=== PATIENT | female | born 1945 | race Caucasian/White ===

== ENCOUNTER 2017-09-19 12:48 | Emergency (ER) | payer MEDICARE ==
[2017-09-19] MEDS ORDERED: FENTANYL CITRATE INJ/PF 100 MCG/2 ML AMPUL IV ONE (13:02)
--- NOTE | 2017-09-19 13:03 | ER Document Report ---
ED Medical Screen (RME) - General Chief Complaint: Wrist Pain Stated Complaint: RIGHT ARM INJURY Notes: RME DISCLOSURE I have seen this patient as part of a Rapid Medical Evaluation and, if applicable, placed any initially appropriate orders. The patient will be seen and fully evaluated, including a full history and physical exam, by a provider ( in Main ED or Fast Track) when a room becomes available. 72-year-old female status post fall earlier today. States she tripped and tried to catch herself but instead fell forward onto her arms. Has significant pain with movement of left wrist. Makes it a point to let me know that she does not want any muscle relaxers because "it landed me in the hospital for 12 days when I took baclofen". EXAM Moderate deformity of left wrist and distal left forearm Laceration right forearm Knee abrasions but normal range of motion without significant pain TRAVEL OUTSIDE OF THE [place] IN LAST 30 DAYS: No - Related Data Allergies/Adverse Reactions: codeine [Codeine] Allergy (Verified 09/19/17 12:52) Past Medical History - Past Medical History Cardiac Medical History: Reports: Hx Hypercholesterolemia, Hx Hypertension Denies: Hx Coronary Artery Disease, Hx Heart Attack Pulmonary Medical History: Reports: Hx Bronchitis, Hx Pneumonia Denies: Hx Asthma, Hx COPD, Hx Tuberculosis Neurological Medical History: Denies: Hx Cerebrovascular Accident, Hx Seizures Renal/ Medical History: Denies: Hx Peritoneal Dialysis GI Medical History: Reports: Hx Gastroesophageal Reflux Disease - IBS Musculoskeltal Medical History: Reports Hx Arthritis Psychiatric Medical History: Reports: Hx Depression Infectious Medical History: Past Surgical History: Reports: Hx Abdominal Surgery - hernia, Hx Tubal Ligation. Denies: Hx Hysterectomy, Hx Pacemaker - Immunizations Hx Diphtheria, Pertussis, Tetanus Vaccination: Yes Physical Exam - Vital signs Vitals: Temp Pulse Resp BP Pulse Ox 98.2 F 61 20 143/126 H 98 09/19/17 12:56 09/19/17 12:56 09/19/17 12:56 09/19/17 12:56 09/19/17 12:56 Course - Vital Signs Vital signs: Temp Pulse Resp BP Pulse Ox 98.2 F 61 20 143/126 H 98 09/19/17 12:56 09/19/17 12:56 09/19/17 12:56 09/19/17 12:56 09/19/17 12:56
[2017-09-19 13:07] VITALS: BP 143/126
[2017-09-19] MEDS ORDERED: HYDROMORPHONE HCL INJ/PF 2 MG/ML AMPULE IM ONE (13:36)
[2017-09-19] MEDS ORDERED: LIDOCAINE 1% INJ (10 MG/ML) 10 ML MDV SUBCUT ONE (13:37)
[2017-09-19] MEDS ORDERED: LIDOCAINE 1% INJ-PF (10 MG/ML) 30 ML SDV INJ ONE (13:38)
[2017-09-19] MEDS ORDERED: ACETAMINOPHEN 325 MG TABLET PO ONE (13:45)
--- NOTE | 2017-09-19 13:45 | RADIOLOGY REPORT (SQ) ---
EXAM DESCRIPTION: FOREARM LEFT COMPLETED DATE/TIME: 09/19/2017 1:28 pm REASON FOR STUDY: s/p fall COMPARISON: None. NUMBER OF VIEWS: Two views. TECHNIQUE: Two radiographic images acquired of the left forearm, including elbow and wrist in at elder st one projection. LIMITATIONS: None. FINDINGS: MINERALIZATION: Normal. BONES: Comminuted transverse fracture of the distal radius with marked anterior displacement. Avulsi on fracture of the base of the ulnar styloid. SOFT TISSUES: No obvious swelling or foreign body. OTHER: No other significant finding. IMPRESSION: DISPLACED COMMINUTED FRACTURE OF THE DISTAL RADIUS. AVULSION FRACTURE AT THE BASE OF TH E ULNAR STYLOID. TECHNICAL DOCUMENTATION: JOB ID: [id number] [employer]- All Rights Reserved Reading location - IP/workstation name: [email or web address]
--- NOTE | 2017-09-19 13:46 | RADIOLOGY REPORT (SQ) ---
EXAM DESCRIPTION: FOREARM RIGHT COMPLETED DATE/TIME: 09/19/2017 1:28 pm REASON FOR STUDY: s/p fall COMPARISON: None. NUMBER OF VIEWS: Two views. TECHNIQUE: Two radiographic images acquired of the right forearm, including elbow and wrist in at le ast one projection. LIMITATIONS: None. FINDINGS: MINERALIZATION: Normal. BONES: No acute fracture. Degenerative changes at the base of the thumb. No worrisome bone lesions. SOFT TISSUES: Soft tissue swelling in the mid forearm. No foreign body. OTHER: No other significant finding. IMPRESSION: SOFT TISSUE SWELLING. NO FRACTURE OR OTHER BONY FINDINGS. TECHNICAL DOCUMENTATION: JOB ID: [id number] [employer]- All Rights Reserved Reading location - IP/workstation name: [email or web address]
--- NOTE | 2017-09-19 13:46 | ER Document Report ---
ED General - General Chief Complaint: Wrist Pain Stated Complaint: RIGHT ARM INJURY Time Seen by Provider: 09/19/17 13:28 TRAVEL OUTSIDE OF THE [place] IN LAST 30 DAYS: No - HPI Patient complains to provider of: Fall Notes: Pleasant 72-year-old female presents with mechanical fall at home. Patient had a fall on outstretched hands. Acute onset of sharp left wrist pain 10/10 without radiate Nothing is made that pain better or worse. Patient also sustained a skin tear on her right forearm denies any head trauma. Does not know her tetanus status - Related Data Allergies/Adverse Reactions: codeine [Codeine] Allergy (Verified 09/19/17 12:52) Past Medical History - Social History Smoking Status: Unknown if Ever Smoked Family History: CAD Patient has suicidal ideation: No Patient has homicidal ideation: No - Past Medical History Cardiac Medical History: Reports: Hx Hypercholesterolemia, Hx Hypertension Denies: Hx Coronary Artery Disease, Hx Heart Attack Pulmonary Medical History: Reports: Hx Bronchitis, Hx Pneumonia Denies: Hx Asthma, Hx COPD, Hx Tuberculosis Neurological Medical History: Denies: Hx Cerebrovascular Accident, Hx Seizures Renal/ Medical History: Denies: Hx Peritoneal Dialysis GI Medical History: Reports: Hx Gastroesophageal Reflux Disease - IBS Musculoskeltal Medical History: Reports Hx Arthritis Psychiatric Medical History: Reports: Hx Depression Infectious Medical History: Past Surgical History: Reports: Hx Abdominal Surgery - hernia, Hx Tubal Ligation. Denies: Hx Hysterectomy, Hx Pacemaker - Immunizations Hx Diphtheria, Pertussis, Tetanus Vaccination: Yes Review of Systems - Review of Systems Notes: REVIEW OF SYSTEMS: CONSTITUTIONAL: -fevers, -chills EENT: -eye pain, -difficulty swallowing, -nasal congestion CARDIOVASCULAR: -chest pain, -syncope. RESPIRATORY: -cough, -SOB GASTROINTESTINAL: -abdominal pain, -nausea, -vomiting, -diarrhea GENITOURINARY: -dysuria, -hematuria MUSCULOSKELETAL: Bilateral upper extremity pain SKIN: -rash or skin lesions. HEMATOLOGIC: -easy bruising or bleeding. LYMPHATIC: -swollen, enlarged glands. NEUROLOGICAL: -altered mental status or loss of consciousness, -headache, - neurologic symptoms PSYCHIATRIC: -anxiety, -depression. ALL OTHER SYSTEMS REVIEWED AND NEGATIVE. Physical Exam - Vital signs Vitals: Temp Pulse Resp BP Pulse Ox 98.2 F 61 20 143/126 H 98 09/19/17 12:56 09/19/17 12:56 09/19/17 12:56 09/19/17 12:56 09/19/17 12:56 - Notes Notes: PHYSICAL EXAMINATION: GENERAL: Well-appearing, well-nourished and in no acute distress. HEAD: Atraumatic, normocephalic. EYES: Pupils equal round and reactive to light, extraocular movements intact, sclera anicteric, conjunctiva are normal. ENT: nares patent, oropharynx clear without exudates. Moist mucous membranes. NECK: Normal range of motion, supple without lymphadenopathy LUNGS: Breath sounds clear to auscultation bilaterally and equal. No wheezes rales or rhonchi. HEART: Regular rate and rhythm without murmurs ABDOMEN: Soft, nontender, normoactive bowel sounds. No guarding, no rebound. No masses appreciated. EXTREMITIES: Left wrist obvious deformity small hematoma overlying distal radius. Patient neurovascularly intact. Patient's right upper extremity has hematoma mid right forearm small skin tear itching a half, no gaping. NEUROLOGICAL: Cranial nerves grossly intact. Normal speech, normal gait. Normal sensory and motor exams. PSYCH: Normal mood, normal affect. SKIN: Warm, Dry, normal turgor, no rashes or lesions noted. Course - Re-evaluation Re-evalutation: 09/19/17 13:44 Unfortunate female presents after mechanical fall at home. Patient has distal radius fracture on the left, skin tear on the right. Patient has her fracture reduced by myself, splinting also done by myself in the department pain well controlled with intramuscular IV opioid therapy. 09/19/17 13:45 - Vital Signs Vital signs: Temp Pulse Resp BP Pulse Ox 98.2 F 61 20 143/126 H 98 09/19/17 12:56 09/19/17 12:56 09/19/17 12:56 09/19/17 12:56 09/19/17 12:56 Procedures - Joint Reduction/Fracture Care Left Upper Wrist Conscious sedation: No Fracture: Closed Manipulation comment: hematoma block placed Post-procedure NV exam: Yes - Laceration/Wound Repair Right Upper Wrist Wound length (cm): 5 Wound's Depth, Shape: Superficial Irrigated w/ Saline (mLs): 500 Wound Repaired With: Steri-strips Discharge - Discharge Referrals: ARMEN HUTCHINS MD [Primary Care Provider] - Follow up as needed
[2017-09-19] MEDS ORDERED: DIPH/PERTUSS(ACELL)/TETANUS VAC/PF 0.5 ML SYR (>=10YO) IM ONE (15:15)
--- NOTE | 2017-09-19 15:23 | RADIOLOGY REPORT (SQ) ---
EXAM DESCRIPTION: FOREARM LEFT COMPLETED DATE/TIME: 09/19/2017 3:03 pm REASON FOR STUDY: reduction and splint COMPARISON: 09/19/2017 NUMBER OF VIEWS: Two views. TECHNIQUE: Two radiographic images acquired of the left forearm, including elbow and wrist in at elder st one projection. LIMITATIONS: None. FINDINGS: MINERALIZATION: Normal. BONES: There is a comminuted fracture of the distal radius with dorsal angulation. Fracture of the u lnar styloid. There is not appear to be a significant interval change. SOFT TISSUES: No obvious swelling or foreign body. OTHER: No other significant finding. IMPRESSION: Fractures as described. TECHNICAL DOCUMENTATION: JOB ID: [id number] [employer]- All Rights Reserved Reading location - IP/workstation name: [email or web address]
== END 2017-09-19 15:55 | disposition home or self-care (01) ==
LOC: ER 12:48
DX: S52.615A Nondisplaced fracture of left ulna styloid process, initial encounter for closed fracture (principal); S52.592A Other fractures of lower end of left radius, initial encounter for closed fracture; S51.811A Laceration without foreign body of right forearm, initial encounter; W19.XXXA Unspecified fall, initial encounter; Y92.009 Unspecified place in unspecified non-institutional (private) residence as the place of occurrence of the external cause; I10 Essential (primary) hypertension; Z88.5 Allergy status to narcotic agent
CPT/HCPCS: 99283; 96372; 73090 ×2; 25605; 12002; A9270; J3010; J1170

== ENCOUNTER 2017-09-27 13:02 | Day surgery (SDC) | payer MEDICARE ==
[2017-09-24 11:42] LABS: ABSOLUTE BASOPHILS # (AUTO) 0.1 10^3/uL (0.0-0.2); ABSOLUTE EOSINOPHILS # (AUTO) 0.2 10^3/uL (0.0-0.6); ABSOLUTE LYMPHOCYTES (AUTO) 1.7 10^3/uL (0.5-4.7); ABSOLUTE MONOCYTES (AUTO) 1.6 10^3/uL (0.1-1.4); ABSOLUTE NEUT (AUTO) 7.3 10^3/uL (1.7-8.2); BASOPHILS % (AUTO) 0.7 % (0-2); EOSINOPHILS % (AUTO) 2.1 % (0-6); HEMATOCRIT 37.1 % (36.0-47.0); HEMOGLOBIN 12.4 g/dL (12.0-15.5); LYMPHOCYTES % (AUTO) 15.9 % (13-45); MEAN CORPUSCULAR HGB CONC 33.4 g/dL (32.0-36.0); MEAN CORPUSCULAR VOLUME 87 fl (80-97); MONOCYTES % (AUTO) 14.6 % (3-13); PLATELET COUNT 336 10^3/uL (150-450); RED BLOOD COUNT 4.27 10^6/uL (3.72-5.28); RED CELL DISTRIBUTION WIDTH 13.5 % (11.5-14.0); SEGMENTED NEUTROPHILS % (AUTO) 66.7 % (42-78); TOTAL CELLS COUNTED % (AUTO) 100 %; WHITE BLOOD COUNT 10.9 10^3/uL (4.0-10.5)
[2017-09-24 12:05] LABS: ANION GAP 13 (5-19); BLOOD UREA NITROGEN 17 mg/dL (7-20); CALCIUM 10.3 mg/dL (8.4-10.2); CARBON DIOXIDE 26 mmol/L (22-30); CHLORIDE 94 mmol/L (98-107); GLUCOSE 89 mg/dL (75-110); POTASSIUM 4.7 mmol/L (3.6-5.0); SODIUM 132.7 mmol/L (137-145)
--- NOTE | 2017-09-24 12:40 | EKG REPORT ---
SEVERITY:- NORMAL ECG - SINUS RHYTHM : Confirmed by: Bang Sylvester MD 24-Sep-2017 12:39:36
[2017-09-24 13:31] LABS: APPEARANCE,URINE SLIGHTLY-CLOUDY; BILIRUBIN,URINE NEGATIVE (NEGATIVE); COLOR,URINE YELLOW; GLUCOSE, URINE NEGATIVE (NEGATIVE); KETONES,URINE NEGATIVE (NEGATIVE); LEUKOCYTE ESTERASE,URINE TRACE (NEGATIVE); NITRITE,URINE NEGATIVE (NEGATIVE); PROTEIN,URINE NEGATIVE (NEGATIVE); URINE SPECIFIC GRAVITY 1.012; UROBILINOGEN,URINE NEGATIVE mg/dL (<2.0)
--- NOTE | 2017-09-24 13:45 | RADIOLOGY REPORT (SQ) ---
EXAM DESCRIPTION: CHEST PA/LATERAL COMPLETED DATE/TIME: 09/24/2017 12:42 pm REASON FOR STUDY: PRE OP COMPARISON: 02/18/2016 NUMBER OF VIEWS: Two view. TECHNIQUE: Frontal and lateral radiographic views of the chest acquired. LIMITATIONS: None. FINDINGS: LUNGS AND PLEURA: No opacities, masses or pneumothorax. No pleural effusion. MEDIASTINUM AND HILAR STRUCTURES: No masses or contour abnormalities. HEART AND VASCULATURE: Heart normal size. No evidence for failure. BONY STRUCTURES: No acute findings. HARDWARE: None. OTHER: No other significant finding. IMPRESSION: NO SIGNIFICANT RADIOGRAPHIC FINDING IN THE CHEST. TECHNICAL DOCUMENTATION: JOB ID: [id number] [employer]- All Rights Reserved Reading location - IP/workstation name: [email or web address]
[~2017-09-27 13:02] MED LIST: ALBUTEROL SULFATE 0.083% NEB 2.5 MG/3 ML AMPUL NEB PRN; CEFAZOLIN 2 GM/D5W RTU 2 GM/50 ML RTUPB IV PRN; DEXAMETHASONE SOD PHOSPHATE INJ 4 MG/1 ML VIAL ONE; FAMOTIDINE INJ/PF 20 MG/2 ML SDV IV PRN; GLYCOPYRROLATE INJ 0.4 MG/2 ML VIAL ONE; LACTATED RINGERS 1000 ML IV PRN; ONDANSETRON HCL INJ/PF 4 MG/2 ML SDV ONE; PHENYLEPHRINE HCL INJ/PF 10 MG/1 ML SDV ONE; ROCURONIUM BROMIDE INJ 50 MG/5 ML VIAL IV ONE; SUCCINYLCHOLINE CHLORIDE INJ 200 MG/10 ML VIAL ONE
[2017-09-27] MEDS: RINGERS SOLUTION,LACTATED 1,000 ML IV PRN ×2 (13:20→21:37)
[2017-09-27] MEDS ORDERED: MIDAZOLAM 2 MG/2 ML INJ ONE ×2 (13:56→14:42)
[2017-09-27] MEDS ORDERED: MORPHINE SULFATE 10 MG/ML INJ ONE (14:31)
[2017-09-27] MEDS ORDERED: FENTANYL CITRATE INJ/PF 100 MCG/2 ML AMPUL ONE (14:42)
[2017-09-27] MEDS ORDERED: ACETAMINOPHEN 100 ML IV ONE (14:42)
[2017-09-27] MEDS ORDERED: PROPOFOL INJ 200 MG/20 ML VIAL IV ONE (14:42)
[2017-09-27] MEDS ORDERED: BUPIVACAINE HCL 0.5 % INJ/PF 30 ML SDV ONE (15:13)
[2017-09-27] MEDS ORDERED: EPINEPHRINE INJ 1 MG/10 ML DISP.SYRIN ONE (16:05)
[2017-09-27] MEDS ORDERED: FENTANYL CITRATE INJ/PF 100 MCG/2 ML AMPUL IV PRN ×3 (16:21)
[2017-09-27] MEDS ORDERED: PROMETHAZINE HCL INJ 25 MG/1 ML VIAL IV PRN ×2 (16:21)
[2017-09-27] MEDS ORDERED: DIPHENHYDRAMINE HCL 50 MG/ML VIAL IV PRN ×2 (16:21→18:41)
[2017-09-27] MEDS ORDERED: MEPERIDINE HCL/PF INJ 25 MG/1 ML DISP.SYRIN IV PRN (16:21)
[2017-09-27] MEDS ORDERED: LIDOCAINE 2%/EPINEPHRINE INJ 20 ML VIAL ONE (18:09)
[2017-09-27] MEDS ORDERED: LIDOCAINE 2% INJ (20 MG/ML) 20 ML MDV ONE (18:10)
[2017-09-27] MEDS ORDERED: ROPIVACAINE HCL 0.5% INJ/PF (5 MG/1 ML) 30 ML SDV ONE (18:10)
--- NOTE | 2017-09-27 18:33 | Discharge Summary ---
Discharge Summary (SDC) - Discharge Final Diagnosis: Left distal radial fracture Date of Surgery: 09/27/17 Discharge Date: 09/27/17 Condition: Good Treatment or Instructions: Schedule Follow Up w/ Dr. Rome Flanagan @ [facility] for Surgery to be seen in 10-14 days or as scheduled [place]: Grant: [place]: Ice and elevate Keep splint clean/dry/intact. If your fingers become numb please unwrap the Ozzie wrap but leave the splint in place, if the sensation does not return within 30 minutes please return to the emergency department. May begin finger range of motion attempting to make full fist. Please use ibuprofen (Motrin or Advil) 600-800 mg every 8 hours as needed for pain or fever DO NOT TAKE w/ TORADOL may use once TORADOL complete. You may also use acetaminophen (Tylenol) 1000 mg every 4-6 hours as needed for pain or fever. Please be aware that many medications contain acetaminophen, do not exceed a total of 1000 mg of acetaminophen every 6 hours. If ibuprofen and acetaminophen are not sufficient for your pain you may take the Percocet/[place]. Please be aware that the Percocet/[place] does contain Tylenol. Stool softener of choice when on pain medication. Prescriptions: Oxycodone HCl/Acetaminophen [Endocet 7.5-325 mg Tablet] 1 each PO Q6 #30 tablet Referrals: ARMEN HUTCHINS MD [Primary Care Provider] - Discharge Diet: As Tolerated, Regular Respiratory Treatments at Home: Deep Breathing/Coughing Discharge Activity: No Lifting Over 10 Pounds, No Lifting/Push/Pulling Home Care Assistance: Provided by Family Report the Following to Your Physician Immediately: Shortness of Breath, Fever over 101 Degrees, Unusual Bleeding, Redness, Swelling, Drainage-Yellow
[2017-09-27] MEDS ORDERED: MORPHINE SULFATE 10 MG/ML INJ IM PRN (18:41)
[2017-09-27] MEDS ORDERED: OXYCODONE HCL IR 5 MG TABLET PO PRN (18:41)
[2017-09-27] MEDS ORDERED: MORPHINE SULFATE 10 MG/ML INJ IV PRN ×3 (18:41)
[2017-09-27] MEDS ORDERED: ONDANSETRON 4 MG TAB.RAPDIS PO PRN (18:41)
--- NOTE | 2017-09-27 18:41 | Operative Report ---
Operative Report DATE OF SURGERY: 09/27/17 PREOPERATIVE DIAGNOSIS: >3 Part Intra-articular Distal Radius POSTOPERATIVE DIAGNOSIS: Same OPERATION: ORIF >3 Part Intra-articular Distal Radius Fracture SURGEON: GIOVANNI GE ANESTHESIA: GA COMPLICATIONS: None ESTIMATED BLOOD LOSS: Minimal PROCEDURE: Indication for above procedure: 72-year-old female who sustained a fall onto her outstretched left wrist. Patient radiographs demonstrate comminuted intra-articular distal radius fracture. Subsequently followed up at which point we discussed treatment options including operative versus nonoperative intervention. Risks and benefits were explained to the patient, patient verbalized understanding consented for the procedure. Procedure In Detail: Patient was seen and evaluated in the preoperative holding area. The LEFT upper extremity was initialized and marked. Patient received 2g of Ancef IV for bacterial prophylaxis. Patient was taken back to the operative room where transferred to the operative table and placed under general anesthesia. Once they were adequately anesthetized and a nonsterile tourniquet was placed on his upper extremity. A surgical team debriefing was performed ensuring all instrumentation was available, the surgical procedure was discussed with possible concerns reviewed. The upper extremity was prepped with chlorhexidine and alcohol and draped in a sterile fashion. A timeout was done identifying correct patient, procedure and extremity everyone in attendance agree with this and verbalized no concerns.The extremity was exsanguinated the tourniquet was inflated to 250 mmHg. A longitudinal skin incision was made via a volar approach of [place] along the FCR tendon sheath. The FCR tendon sheath was opened and the FCR retracted ulnarly, the palmar cutaneous branch of the median nerve was identified and protected throughout the entirety of the case. The radial artery was identified and retracted radially. Blunt dissection was performed to the FPL which was carefully sweeped ulnarly. This brought me to the pronator quadratus which was elevated off of the distal radius via sharp dissection with a 15 blade to allow later repair. Patient had significant intra-articular comminution with bone loss volarly and ulnarly. The fracture was reduced with hyperextension. Multiple K wires were placed to hold the articular fragments into position. C-arm fluoroscopy was obtained demonstrating acceptable alignment. Two K wires were placed within the volar ulnar corner and then bent and advanced. There was mild protuberance dorsally thus skin incision was made dorsally blunt dissection was performed between the 3-4 dorsal compartments and a K wire was cut below the skin. Once I liked the placement of the K wires I then proceeded with placement of the volar locking plate. A Acumed 3 hole volar distal radius plate which was secured along the proximal shaft within the oblong hole. Once fixated to the shaft it was placed along the central portion of the articular surface and secured with K wires. C-arm fluoroscopy was obtained which demonstrated appropriate placement of the plate with adequate reduction of the radial styloid and central articular fragments. The plate was then secured first radially with the appropriate size locking screws within the radial styloid and radial aspect of the plate. I then proceeded with fixation of the volar ulnar corner. There was significant bone loss within the volar ulnar corner despite fixation with 2 K wires. I thus utilized a #4-0 [employer] within the volar radiolunate ligaments which provided fixation. I then completed fixation with 3 additional locking screws. The proximal aspect of the plate was fixated with an additional bicortical screw and a locking screw in the most proximal hole. The wound was copiously irrigated with normal saline. There was no evidence of DRUJ instability on examination, Negative Payne's test, No crepitus with range of motion at the radiocarpal joint or DRUJ. I then closed the pronator quadratus with interrupted 3-0 Monocryl suture. Subcutaneous tissues were closed with interrupted 4-0 Monocryl suture. The skin was closed with interrupted 4-0 nylon suture. The tourniquet was then deflated. Was dressed with sterile 4 x 4's and patient was placed in a well-padded volar and dorsal splint with Ozzie wrap. Sponge counts, instrument counts and needle counts were correct. There was no intraoperative complications patient tolerated procedure well stable to PACU. Postoperative plan: Patient will be in a short arm cast first postoperative followup visit . Patient is encouraged to start vitamin C 500 mg daily for 51 days. Will obtain radiographs in her splint at follow-up
[2017-09-27] MEDS ORDERED: METOCLOPRAMIDE HCL INJ/PF 10 MG/2 ML SDV ONE (18:43)
--- NOTE | 2017-09-27 20:18 | RADIOLOGY REPORT (SQ) ---
EXAM DESCRIPTION: WRIST LEFT 2 VIEWS; NO CHG FLUORO COMPLETED DATE/TIME: 09/27/2017 7:28 pm REASON FOR STUDY: ORIF LEFT WRIST S52.542A BRO'S FRACTURE OF LEFT RADIUS, INIT FOR CLOS FX COMPARISON: RADIOGRAPH FROM 09/19/2017. FLUOROSCOPY TIME: 4 MINUTES 23 SECONDS. 4 images saved to PACS. TECHNIQUE: Intra-operative images acquired during surgical procedure to evaluate progress. NUMBER OF IMAGES: 4 IMAGES. LIMITATIONS: None. FINDINGS: 4 fluoroscopic images demonstrates internal and external fixation of distal radius fractur e without gross complication. Ulnar styloid fracture also visualize. IMPRESSION: IMAGE(S) OBTAINED DURING PROCEDURE. COMMENT: Quality ID 145: Final reports for procedures using fluoroscopy that document radiation exp osure indices, or exposure time and number of fluorographic images (if radiation exposure indices are not available) Please consult full operative report of the attending physician for description of the procedure. TECHNICAL DOCUMENTATION: JOB ID: [id number] [employer]- All Rights Reserved Reading location - IP/workstation name: [email or web address]
--- NOTE | 2017-09-27 20:18 | RADIOLOGY REPORT (SQ) ---
EXAM DESCRIPTION: WRIST LEFT 2 VIEWS; NO CHG FLUORO COMPLETED DATE/TIME: 09/27/2017 7:28 pm REASON FOR STUDY: ORIF LEFT WRIST S52.542A BRO'S FRACTURE OF LEFT RADIUS, INIT FOR CLOS FX COMPARISON: RADIOGRAPH FROM 09/19/2017. FLUOROSCOPY TIME: 4 MINUTES 23 SECONDS. 4 images saved to PACS. TECHNIQUE: Intra-operative images acquired during surgical procedure to evaluate progress. NUMBER OF IMAGES: 4 IMAGES. LIMITATIONS: None. FINDINGS: 4 fluoroscopic images demonstrates internal and external fixation of distal radius fractur e without gross complication. Ulnar styloid fracture also visualize. IMPRESSION: IMAGE(S) OBTAINED DURING PROCEDURE. COMMENT: Quality ID 145: Final reports for procedures using fluoroscopy that document radiation exp osure indices, or exposure time and number of fluorographic images (if radiation exposure indices are not available) Please consult full operative report of the attending physician for description of the procedure. TECHNICAL DOCUMENTATION: JOB ID: [id number] [employer]- All Rights Reserved Reading location - IP/workstation name: [email or web address]
--- NOTE | 2017-09-27 20:57 | EKG REPORT ---
SEVERITY:- NORMAL ECG - SINUS RHYTHM : Confirmed by: Bang Sylvester MD 27-Sep-2017 20:57:10
[2017-09-27] MEDS: OXYCODONE HCL SR 10 MG TABLET PO SCH (23:15)
[2017-09-28] MEDS ORDERED: ACETAMINOPHEN 100 ML IV ONE (00:41)
[2017-09-28 04:29] VITALS: BP 150/68
[2017-09-28] MEDS ORDERED: LANSOPRAZOLE 30 MG TAB.RAP.DR PO SCH (06:00)
[2017-09-28] MEDS: OXYCODONE HCL SR 10 MG TABLET PO SCH (09:13)
[2017-09-28] MEDS ORDERED: PREGABALIN 75 MG CAPSULE PO SCH (10:00)
--- NOTE | 2017-10-01 09:57 | Operative Report ---
Operative Report DATE OF SURGERY: 09/27/17 PREOPERATIVE DIAGNOSIS: >3 Part Intra-articular Distal Radius POSTOPERATIVE DIAGNOSIS: Same OPERATION: ORIF >3 Part Intra-articular Distal Radius Fracture SURGEON: GIOVANNI GE [employer] WORKER: MOUNIKA BAKER - Required for fracture reduction and retractor placement ANESTHESIA: GA ESTIMATED BLOOD LOSS: Minimal
== END 2017-09-28 11:08 | disposition home or self-care (01) ==
LOC: OROUT 13:02 → 4N 20:29 → OROUT 09-28 11:08
PROVIDERS: ATTEND Orthopaedic Surgery
PROC: 0PSJ04Z Reposition Left Radius with Internal Fixation Device, Open Approach (ICD-10-PCS; principal; 2017-09-27 14:00)
DX: S52.542A Smith's fracture of left radius, initial encounter for closed fracture (principal); W19.XXXA Unspecified fall, initial encounter; I10 Essential (primary) hypertension; E78.5 Hyperlipidemia, unspecified; F17.210 Nicotine dependence, cigarettes, uncomplicated; E05.90 Thyrotoxicosis, unspecified without thyrotoxic crisis or storm; K21.9 Gastro-esophageal reflux disease without esophagitis; Z88.5 Allergy status to narcotic agent; Z79.899 Other long term (current) drug therapy
CPT/HCPCS: 93005 ×2; 36415 ×2; 85025; 80048; 81001; 84484; 71046; 73100; 93010 ×2; 25609; C1713 ×2; J2795; J2250; J3490 ×4; A9270 ×5; J1100; J3010; J2765; J2270; J2370; J0330; J2405; J7120; J2704; S0028; J0690; J0131; 01830; J0171

== ENCOUNTER 2017-12-13 09:46 | Day surgery (SDC) | payer MEDICARE ==
[2017-12-06 10:12] LABS: HEMATOCRIT 41.6 % (36.0-47.0); HEMOGLOBIN 13.7 g/dL (12.0-15.5); MEAN CORPUSCULAR HEMOGLOBIN 28.5 pg (27.0-33.4); MEAN CORPUSCULAR VOLUME 87 fl (80-97); PLATELET COUNT 293 10^3/uL (150-450); RED BLOOD COUNT 4.81 10^6/uL (3.72-5.28); RED CELL DISTRIBUTION WIDTH 13.8 % (11.5-14.0); WHITE BLOOD COUNT 7.1 10^3/uL (4.0-10.5)
[2017-12-06 10:21] LABS: APPEARANCE,URINE SLIGHTLY-CLOUDY; BILIRUBIN,URINE NEGATIVE (NEGATIVE); COLOR,URINE YELLOW; GLUCOSE, URINE NEGATIVE (NEGATIVE); KETONES,URINE NEGATIVE (NEGATIVE); LEUKOCYTE ESTERASE,URINE NEGATIVE (NEGATIVE); NITRITE,URINE NEGATIVE (NEGATIVE); PROTEIN,URINE NEGATIVE (NEGATIVE); URINE SPECIFIC GRAVITY 1.013; UROBILINOGEN,URINE NEGATIVE mg/dL (<2.0)
[2017-12-06 10:39] LABS: ANION GAP 14 (5-19); BLOOD UREA NITROGEN 11 mg/dL (7-20); CALCIUM 11.3 mg/dL (8.4-10.2); CARBON DIOXIDE 25 mmol/L (22-30); CHLORIDE 105 mmol/L (98-107); GLUCOSE 103 mg/dL (75-110); POTASSIUM 4.4 mmol/L (3.6-5.0); SODIUM 144.4 mmol/L (137-145)
[~2017-12-13 09:46] MED LIST changes: -ALBUTEROL SULFATE 0.083% NEB 2.5 MG/3 ML AMPUL NEB PRN; -DEXAMETHASONE SOD PHOSPHATE INJ 4 MG/1 ML VIAL ONE; -FAMOTIDINE INJ/PF 20 MG/2 ML SDV IV PRN; -GLYCOPYRROLATE INJ 0.4 MG/2 ML VIAL ONE; +LIDOCAINE 0.5% INJ-PF (5 MG/ML) 50 ML SDV SUBCUT PRN; -ONDANSETRON HCL INJ/PF 4 MG/2 ML SDV ONE; -PHENYLEPHRINE HCL INJ/PF 10 MG/1 ML SDV ONE; -ROCURONIUM BROMIDE INJ 50 MG/5 ML VIAL IV ONE; -SUCCINYLCHOLINE CHLORIDE INJ 200 MG/10 ML VIAL ONE
[2017-12-13] MEDS ORDERED: FENTANYL CITRATE INJ/PF 100 MCG/2 ML AMPUL ONE (10:10)
[2017-12-13] MEDS ORDERED: MIDAZOLAM 2 MG/2 ML INJ ONE (10:10)
[2017-12-13] MEDS ORDERED: ACETAMINOPHEN 1,000 MG/100 ML RTUPB IV ONE (10:10)
[2017-12-13] MEDS ORDERED: PROPOFOL INJ 200 MG/20 ML VIAL IV ONE (10:10)
[2017-12-13] MEDS ORDERED: CEFAZOLIN SODIUM 2 GM in NORMAL SALINE 100 ML IV PRN (12:18)
[2017-12-13] MEDS ORDERED: BUPIVACAINE HCL 0.5 % INJ/PF 30 ML SDV ONE (13:23)
[2017-12-13] MEDS ORDERED: LIDOCAINE 1% INJ-PF (10 MG/ML) 30 ML SDV ONE (13:24)
[2017-12-13] MEDS ORDERED: DIPHENHYDRAMINE HCL 50 MG/ML VIAL IV PRN (14:18)
[2017-12-13] MEDS ORDERED: MEPERIDINE HCL/PF INJ 25 MG/1 ML DISP.SYRIN IV PRN (14:18)
[2017-12-13] MEDS ORDERED: PROMETHAZINE HCL INJ 25 MG/1 ML VIAL IV PRN ×2 (14:18)
[2017-12-13] MEDS ORDERED: FENTANYL CITRATE INJ/PF 100 MCG/2 ML AMPUL IV PRN ×3 (14:18)
[2017-12-13] MEDS ORDERED: EPHEDRINE SULFATE INJ 50 MG/1 ML AMPULE ONE (15:00)
[2017-12-13] MEDS ORDERED: PHENYLEPHRINE HCL INJ/PF 10 MG/1 ML SDV ONE (16:14)
[2017-12-13] MEDS ORDERED: GLYCOPYRROLATE INJ 0.4 MG/2 ML VIAL ONE (16:14)
[2017-12-13] MEDS ORDERED: LIDOCAINE 2% INJ-PF (20 MG/ML) 2 ML AMPUL ONE (16:14)
[2017-12-13] MEDS ORDERED: ONDANSETRON HCL INJ/PF 4 MG/2 ML SDV ONE (16:14)
[2017-12-13] MEDS ORDERED: SUCCINYLCHOLINE CHLORIDE INJ 200 MG/10 ML VIAL ONE (16:14)
[2017-12-13] MEDS ORDERED: ROCURONIUM BROMIDE INJ 50 MG/5 ML VIAL IV ONE (16:14)
[2017-12-13] MEDS ORDERED: DEXAMETHASONE SOD PHOSPHATE INJ 4 MG/1 ML VIAL ONE (16:14)
--- NOTE | 2017-12-13 16:14 | RADIOLOGY REPORT (SQ) ---
EXAM DESCRIPTION: NO CHG FLUORO; WRIST LEFT 2 VIEWS COMPLETED DATE/TIME: 12/13/2017 3:51 pm REASON FOR STUDY: ORIF LT WRIST COMPARISON: None. FLUOROSCOPY TIME: 3 minutes 10 seconds 9 Images saved to PACS LIMITATIONS: None. PROCEDURE: Revision of open reduction internal fixation FINDINGS: Images obtained with the C-arm document the placement of a long plate on the dorsal aspect of the wrist secured to the radius and the 3rd metacarpal. IMPRESSION: Revision of open reduction internal fixation. COMMENT: PQRS 6045F: Fluoroscopy time of the procedure is documented in the report. TECHNICAL DOCUMENTATION: JOB ID: [id number] [employer]- All Rights Reserved Reading location - IP/workstation name: [email or web address]
--- NOTE | 2017-12-13 16:14 | RADIOLOGY REPORT (SQ) ---
EXAM DESCRIPTION: NO CHG FLUORO; WRIST LEFT 2 VIEWS COMPLETED DATE/TIME: 12/13/2017 3:51 pm REASON FOR STUDY: ORIF LT WRIST COMPARISON: None. FLUOROSCOPY TIME: 3 minutes 10 seconds 9 Images saved to PACS LIMITATIONS: None. PROCEDURE: Revision of open reduction internal fixation FINDINGS: Images obtained with the C-arm document the placement of a long plate on the dorsal aspect of the wrist secured to the radius and the 3rd metacarpal. IMPRESSION: Revision of open reduction internal fixation. COMMENT: PQRS 6045F: Fluoroscopy time of the procedure is documented in the report. TECHNICAL DOCUMENTATION: JOB ID: [id number] [employer]- All Rights Reserved Reading location - IP/workstation name: [email or web address]
[2017-12-13] MEDS ORDERED: MORPHINE SULFATE 10 MG/ML INJ IV PRN (16:16)
[2017-12-13] MEDS ORDERED: OXYCODONE-ACETAMINOPHEN 5-325 MG TABLET PO PRN (16:16)
[2017-12-13] MEDS ORDERED: ROPIVACAINE HCL 0.5% INJ/PF (5 MG/1 ML) 30 ML SDV ONE (16:22)
[2017-12-13] MEDS ORDERED: LIDOCAINE 2% INJ (20 MG/ML) 20 ML MDV ONE (16:23)
[2017-12-13] MEDS ORDERED: LIDOCAINE 2%/EPINEPHRINE INJ 20 ML VIAL ONE (16:24)
--- NOTE | 2017-12-13 16:29 | Operative Report ---
Operative Report DATE OF SURGERY: 12/13/17 PREOPERATIVE DIAGNOSIS: Left Distal Radius Malunion w/ Painful Hardware POSTOPERATIVE DIAGNOSIS: Same OPERATION: 1. Removal of hardware. 2. Corrective Osteotomy Left Intra- articular Distal Radius Malunion w/ Internal Fixation Placement of Distraction Bridge Plate, placement of synthetic montage bone graft SURGEON: GIOVANNI GE ANESTHESIA: GA COMPLICATIONS: None ESTIMATED BLOOD LOSS: Minimal PROCEDURE: Indication for above procedure: Pleasant 72-year-old female sustained a fall onto her left wrist resulting in a comminuted intra-articular distal radius fracture. Open reduction internal fixation was attempted in September. Unfortunately patient developed malunion of her volar ulnar corner with subluxation of the radiocarpal joint. At that point we discussed treatment options including salvage procedures versus operative intervention such as corrective osteotomy with placement of distraction bridge plate. After discussing these treatment options joint decision was made to proceed with operative intervention. Procedure In Detail: Patient was seen and evaluated in the preoperative holding area. The LEFT upper extremity was initialized and marked. Patient received 2g of Ancef IV for bacterial prophylaxis. Patient was taken back to the operative room where transferred to the operative table and placed under general anesthesia. Once they were adequately anesthetized a nonsterile tourniquet was placed on the upper extremity. A surgical team debriefing was performed ensuring all instrumentation was available, the surgical procedure was discussed with possible concerns reviewed. The upper extremity was prepped with chlorhexidine and alcohol and draped in a sterile fashion. A timeout was done identifying correct patient, procedure and extremity everyone in attendance agree with this and verbalized no concerns. The extremity was exsanguinated the tourniquet was inflated to 250 mmHg. Patient's previous skin incision was utilized. Blunt dissection was performed and the FCR tendon was identified. The median nerve was identified along the ulnar aspect of the incision. Was a mild amount of flexor tenosynovium and thus a tenosynovectomy was performed along the flexor tendons. The plate was then exposed. Previous K wires, screws and plate were removed in their entirety. Identification demonstrated the volar ulnar corner fragment had collapsed in the volar ulnar direction allowing for radiocarpal instability. A posterior directed force was placed through the lunate which adequately restored alignment of the radiocarpal joint however depression of the volar ulnar corner remained. Thus with a osteotome osteoclasis was performed to the volar ulnar corner fragment which freed it from the surrounding distal radius. This was gently elevated. While maintaining a posterior directed force to the carpus and lunate correcting carpal alignment a 0.054 K wire was placed from the distal radius into the lunate maintaining alignment. This gave me guidance to determine the appropriate correction of my osteotomy. Using this as a template the volar ulnar corner was lifted to the lunate restoring buttress to avoid collapse. C-arm fluoroscopy was obtained and I felt adequate alignment was restored. With the use of Montage bone graft the defect was filled and held into position with a K wire until the bone graft settled obtaining structure to the volar ulnar corner fragment. Once again C-arm fluoroscopy was obtained any remaining bone graft within the DRUJ was excised. I then placed a Acumed volar ulnar corner plate securing it first proximally through the oblong hole. I was then able to elevate the plate to the appropriate position and secured it with K wires distally. C-arm fluoroscopy was obtained confirming adequate alignment of my volar ulnar corner to allow for buttressing of the carpus. I then completed fixation proximally with 2 additional screws one locking and 1 nonlocking. The distal aspect of the plate was then filled with 3 locking screws which adequately supported the articular surface. Once complete C arm fluoroscopy was obtained demonstrating gnosticism of radial height, inclination and neutral volar tilt without residual subluxation of the radiocarpal joint. Given patient's poor bone quality however decision was made to proceed with distraction bridge plating to protect the construct until fracture union is noted. The volar wound was copiously irrigated with normal saline. Any peripheral veins were coagulated bipolar cautery. Previous screw holes were curetted to normal-appearing bone. Deep tissues were closed with 3-0 Monocryl suture. Subcutaneous tissues were closed with interrupted 3-0 Monocryl. Skin was closed with a running 4-0 nylon suture. I then turned my attention to distraction bridge plating. Longitudinal skin incision was made along the third metacarpal shaft any peripheral veins were coagulated bipolar cautery. The extensor tendons were identified and retracted and a ulnar direction exposing the third metacarpal shaft. A second incision was made along the dorsum of the wrist freeing the fourth dorsal compartment to allow for advancement of the distraction bridge plate. Finally a third incision was made proximally at the radial shaft. Blunt dissection was performed. Branches of the superficial radial nerve were identified and retracted exposing the radial shaft. Once the 3 portions were exposed and elevator was placed to obtain a tract for the plate. The Acumed distraction bridge plate was then advanced from distal to proximal. K wires were placed proximally distally in C arm fluoroscopy was obtained confirming appropriate placement. Once placement was adequate the plate was secured distally with bicortical fixation and C-arm once again was obtained confirming appropriate placement. Special attention to placement of the plate was secured under direct localization to avoid entrapment of the extensor tendons. Fixation was obtained proximally with a bicortical screw in the radius. I then completed fixation distally with 3 additional locking screws. Fixation was completed proximally with 2 additional locking screws. The wounds were then copiously irrigated with normal saline. Tourniquet was deflated any peripheral bleeding was controlled with bipolar cautery until the wound was dry. Skin was closed with running 4-0 nylon suture. 30 cc of 0.5% Marcaine with epinephrine was injected for postoperative pain control. Wound was dressed with Xeroform 4 x 4's and patient was placed in a volar resting splint. Sponge counts, instrument counts, needle counts counts were correct. Patient was then awoken from anesthesia. Transferred from the operating room table to the operating room stretcher. There was no intraoperative complications patient tolerated procedure well stable to PACU. Postoperative plan: Patient will follow-up in 2 weeks will obtain radiographs at that time. Patient may begin finger range of motion immediately. Plan will be removal of the distraction bridge plate 3 months postoperatively until fracture union is noted.
--- NOTE | 2017-12-13 16:31 | Discharge Summary ---
Discharge Summary (SDC) - Discharge Final Diagnosis: Corrective Osteotomy Left Intra-articular Distal Radius Malunion w/ Internal Fixation Placement of Distraction Bridge Plate Date of Surgery: 12/13/17 Discharge Date: 12/13/17 Condition: Good Treatment or Instructions: Schedule Follow Up w/ Dr. Rome Flanagan @ [facility] to be seen in 10-14 days or as scheduled [place]: [place]: [place]: Ice and elevate Keep splint clean/dry/intact. If your fingers become numb please unwrap the Ozzie wrap but leave the splint in place, if the sensation does not return within 30 minutes please return to the emergency department. May begin finger range of motion attempting to make full fist. Please use ibuprofen (Motrin or Advil) 600-800 mg every 8 hours as needed for pain or fever DO NOT TAKE w/ TORADOL may use once TORADOL complete. You may also use acetaminophen (Tylenol) 1000 mg every 4-6 hours as needed for pain or fever. Please be aware that many medications contain acetaminophen, do not exceed a total of 1000 mg of acetaminophen every 6 hours. If ibuprofen and acetaminophen are not sufficient for your pain you may take the Percocet/Star. Please be aware that the Percocet/Star does contain Tylenol. Stool softener of choice when on pain medication. Prescriptions: Oxycodone HCl/Acetaminophen [Percocet 7.5-325 mg Tablet] 1 - 2 tab PO ASDIR PRN #35 tab PRN Reason: Referrals: ARMEN HUTCHINS MD [Primary Care Provider] - Respiratory Treatments at Home: Deep Breathing/Coughing Discharge Activity: No Lifting Over 10 Pounds, No Lifting/Push/Pulling Report the Following to Your Physician Immediately: Fever over 101 Degrees, Unusual Bleeding, Redness, Swelling, Warmth
[2017-12-13] MEDS ORDERED: HYDROCODONE/ACETAMINOPHEN 5-325 MG TABLET PO PRN (16:48)
[2017-12-13 19:15] VITALS: BP 123/63
== END 2017-12-13 19:10 | disposition home or self-care (01) ==
LOC: OROUT 09:46
PROVIDERS: ATTEND Orthopaedic Surgery
DX: S52.532D Colles' fracture of left radius, subsequent encounter for closed fracture with routine healing (principal); X58.XXXA Exposure to other specified factors, initial encounter; T84.84XA Pain due to internal orthopedic prosthetic devices, implants and grafts, initial encounter; Y83.8 Other surgical procedures as the cause of abnormal reaction of the patient, or of later complication, without mention of misadventure at the time of the procedure; M25.532 Pain in left wrist; I10 Essential (primary) hypertension; M19.90 Unspecified osteoarthritis, unspecified site; E78.5 Hyperlipidemia, unspecified; G89.29 Other chronic pain; M54.9 Dorsalgia, unspecified; E05.90 Thyrotoxicosis, unspecified without thyrotoxic crisis or storm; Z79.01 Long term (current) use of anticoagulants; Z87.891 Personal history of nicotine dependence; Z79.899 Other long term (current) drug therapy; Z79.891 Long term (current) use of opiate analgesic; Z88.5 Allergy status to narcotic agent; Z88.8 Allergy status to other drugs, medicaments and biological substances
CPT/HCPCS: 36415; 85027; 80048; 81001; 73100; 25405; C1713; J2795; J2250; J3490 ×7; J0690; J1100; J3010; J2370; J0330; J2405; J2704; J0131; 01830

== ENCOUNTER 2018-04-08 09:23 | Day surgery (SDC) | payer MEDICARE ==
[2018-03-25 10:32] LABS: HEMATOCRIT 40.1 % (36.0-47.0); HEMOGLOBIN 13.4 g/dL (12.0-15.5); MEAN CORPUSCULAR HEMOGLOBIN 28.9 pg (27.0-33.4); MEAN CORPUSCULAR HGB CONC 33.5 g/dL (32.0-36.0); MEAN CORPUSCULAR VOLUME 86 fl (80-97); PLATELET COUNT 288 10^3/uL (150-450); RED BLOOD COUNT 4.64 10^6/uL (3.72-5.28); RED CELL DISTRIBUTION WIDTH 13.9 % (11.5-14.0); WHITE BLOOD COUNT 7.3 10^3/uL (4.0-10.5)
[2018-03-25 10:57] LABS: ANION GAP 8 (5-19); BLOOD UREA NITROGEN 14 mg/dL (7-20); CALCIUM 10.9 mg/dL (8.4-10.2); CARBON DIOXIDE 27 mmol/L (22-30); CHLORIDE 105 mmol/L (98-107); GLUCOSE 95 mg/dL (75-110); POTASSIUM 5.1 mmol/L (3.6-5.0); SODIUM 139.6 mmol/L (137-145)
[2018-03-25 11:07] LABS: APPEARANCE,URINE SLIGHTLY-CLOUDY; BILIRUBIN,URINE NEGATIVE (NEGATIVE); COLOR,URINE YELLOW; GLUCOSE, URINE NEGATIVE (NEGATIVE); KETONES,URINE NEGATIVE (NEGATIVE); LEUKOCYTE ESTERASE,URINE NEGATIVE (NEGATIVE); NITRITE,URINE NEGATIVE (NEGATIVE); PROTEIN,URINE NEGATIVE (NEGATIVE); URINE SPECIFIC GRAVITY 1.012; UROBILINOGEN,URINE NEGATIVE mg/dL (<2.0)
--- NOTE | 2018-03-25 11:43 | RADIOLOGY REPORT (SQ) ---
EXAM DESCRIPTION: CHEST PA/LATERAL COMPLETED DATE/TIME: 03/25/2018 11:22 am REASON FOR STUDY: PRE-OP COMPARISON: Chest films 04/11/2013, 02/18/2016, 09/24/2017 EXAM PARAMETERS: NUMBER OF VIEWS: two views TECHNIQUE: Digital Frontal and Lateral radiographic views of the chest acquired. RADIATION DOSE: NA LIMITATIONS: none FINDINGS: LUNGS AND PLEURA: Lungs are hyperinflated and hyperlucent from obstructive disease. No fo elory infiltrates. No pleural effusion. No pneumothorax. MEDIASTINUM AND HILAR STRUCTURES: No masses or contour abnormalities. HEART AND VASCULAR STRUCTURES: Heart normal size. No evidence for failure. BONES: Osteoporotic. HARDWARE: None in the chest. OTHER: No other significant finding. IMPRESSION: Obstructive lung disease TECHNICAL DOCUMENTATION: JOB ID: [id number]- All Rights Reserved Reading location - IP/workstation name: [email or web address]
--- NOTE | 2018-03-25 23:08 | EKG REPORT ---
SEVERITY:- NORMAL ECG - SINUS RHYTHM : Confirmed by: Dion Callaway 25-Mar-2018 23:07:38
[~2018-04-08 09:23] MED LIST changes: +BUPIVACAINE HCL 0.5 % INJ/PF 30 ML SDV ONE; +CEFAZOLIN 2 GM/D5W RTU 2 GM/50 ML RTUPB IV ONE
[2018-04-08] MEDS ORDERED: DEXAMETHASONE SOD PHOSPHATE INJ 4 MG/1 ML VIAL ONE (10:25)
[2018-04-08] MEDS ORDERED: MIDAZOLAM 2 MG/2 ML INJ ONE (10:25)
[2018-04-08] MEDS ORDERED: FENTANYL CITRATE INJ/PF 100 MCG/2 ML AMPUL ONE ×2 (10:25→12:11)
[2018-04-08] MEDS ORDERED: ONDANSETRON HCL INJ/PF 4 MG/2 ML SDV ONE (10:25)
[2018-04-08] MEDS ORDERED: PROPOFOL INJ 200 MG/20 ML VIAL IV ONE (10:26)
[2018-04-08] MEDS ORDERED: ACETAMINOPHEN 1,000 MG/100 ML RTUPB IV ONE (10:26)
[2018-04-08] MEDS ORDERED: ONDANSETRON HCL INJ/PF 4 MG/2 ML SDV IV PRN ×2 (10:57→11:30)
[2018-04-08] MEDS ORDERED: PROMETHAZINE HCL INJ 25 MG/1 ML VIAL IV PRN ×2 (10:57)
[2018-04-08] MEDS ORDERED: MORPHINE SULFATE 10 MG/ML INJ IV PRN (10:57)
[2018-04-08] MEDS ORDERED: FENTANYL CITRATE INJ/PF 100 MCG/2 ML AMPUL IV PRN ×4 (10:57→11:30)
[2018-04-08] MEDS ORDERED: DIPHENHYDRAMINE HCL 50 MG/ML VIAL IV PRN (10:57)
[2018-04-08] MEDS ORDERED: MEPERIDINE HCL/PF INJ 25 MG/1 ML DISP.SYRIN IV PRN (10:57)
[2018-04-08] MEDS ORDERED: HYDROCODONE/ACETAMINOPHEN 5-325 MG TABLET PO PRN (11:30)
--- NOTE | 2018-04-08 11:30 | Discharge Summary ---
Discharge Summary (SDC) - Discharge Final Diagnosis: Left distal radius fracture Date of Surgery: 04/08/18 Discharge Date: 04/08/18 Condition: Good Treatment or Instructions: Schedule Follow Up w/ Dr. Rome Flanagan @ [facility] for Surgery to be seen in 10-14 days or as scheduled [place]: [place]: [place]: May remove dressing on postop day #3, keep incision covered and dry. Ice and elevate May begin wrist, finger range of motion attempting to make full fist. Stool softener of choice when on pain medication. Prescriptions: Hydrocodone/Acetaminophen [Cidra 5-325 mg Tablet] 1 tab PO Q6 PRN #25 tablet PRN Reason: Referrals: ARMEN HUTCHINS MD [Primary Care Provider] - Discharge Diet: As Tolerated Respiratory Treatments at Home: Deep Breathing/Coughing Discharge Activity: No Lifting Over 10 Pounds, No Lifting/Push/Pulling Report the Following to Your Physician Immediately: Fever over 101 Degrees, Unusual Bleeding, Redness, Swelling, Warmth, Increased Soreness
--- NOTE | 2018-04-08 11:31 | Operative Report ---
Operative Report DATE OF SURGERY: 04/08/18 PREOPERATIVE DIAGNOSIS: Retained hardware left wrist POSTOPERATIVE DIAGNOSIS: Same OPERATION: Hardware removal left wrist with extensor tenolysis SURGEON: GIOVANNI GE ANESTHESIA: GA COMPLICATIONS: None ESTIMATED BLOOD LOSS: Minimal PROCEDURE: Indication for above procedure: 72-year-old female who sustained a fall onto her left wrist resulting in a comminuted intra-articular distal radius fracture. Patient underwent open reduction internal fixation unfortunately she developed volar subluxation of the carpus underwent revision surgery with distraction bridge plating. Patient' s fracture adequately healed at that point decision was made to proceed with removal of the distraction bridge plate. Procedure In Detail: Patient was seen and evaluated in the preoperative holding area. The LEFT upper extremity was initialized and marked. Patient received 2g of Ancef IV for bacterial prophylaxis. Patient was taken back to the operative room where transferred to the operative table and placed under general anesthesia. Once they were adequately anesthetized a nonsterile tourniquet was placed on the upper extremity. A surgical team debriefing was performed ensuring all instrumentation was available, the surgical procedure was discussed with possible concerns reviewed. The upper extremity was prepped with chlorhexidine and alcohol and draped in a sterile fashion. A timeout was done identifying correct patient, procedure and extremity everyone in attendance agree with this and verbalized no concerns. The extremity was exsanguinated the tourniquet was inflated to 250 mmHg. Previous skin incision was made along the third metacarpal. Blunt dissection performed. The distal screws of the distraction bridge plate were then removed. Previous proximal incision was then utilized. The extensor carpi radialis brevis and EDC were retracted to identify the most proximal screws. These were screws were then removed. This plate was then successfully removed from this region. Through the proximal incision the extensor tendons were tenolysed removing any notable adhesions or scar tissue. To allow free gliding of the extensor tendons. Patient had full passive flexion and extension of all digits. C arm fluoroscopy was utilized in examination under anesthesia demonstrated no evidence of volar subluxation. The volar ulnar corner was stable without evidence of motion on life C arm fluoroscopy.. There is no crepitus with range of motion. Patient's wrist range of motion after bridge plate removal was approximately 30 degrees - 25 degrees with full pronation supination. No DRUJ instability. The wound was then copiously irrigated with normal saline. The tourniquet was deflated. Any peripheral bleeding was controlled with bipolar cautery until the wound was dry. Skin incisions were closed with interrupted 4- 0 nylon suture. Wounds dressed Xeroform 4 x 4's and a soft dressing placed. Sponge counts, instrument counts, needle counts counts were correct. Patient was then awoken from anesthesia. Transferred from the operating room table to the operating room stretcher. There was no intraoperative complications patient tolerated procedure well stable to PACU. Postoperative plan: Patient will begin home exercise program focusing on wrist range of motion.. Will obtain radiographs at follow-up.
[2018-04-08] MEDS ORDERED: ROPIVACAINE HCL 0.5% INJ/PF (5 MG/1 ML) 30 ML SDV ONE (12:21)
[2018-04-08] MEDS ORDERED: LIDOCAINE 2%/EPINEPHRINE INJ 20 ML VIAL ONE (12:21)
[2018-04-08] MEDS ORDERED: LIDOCAINE 2% INJ (20 MG/ML) 20 ML MDV ONE (12:21)
--- NOTE | 2018-04-08 13:38 | RADIOLOGY REPORT (SQ) ---
EXAM DESCRIPTION: NO CHG FLUORO; WRIST LEFT 3 VIEWS COMPLETED DATE/TIME: 04/08/2018 1:26 pm; 04/08/2018 1:27 pm REASON FOR STUDY: HARDWARE REMOVAL LEFT WRIST COMPARISON: 12/13/2017 FLUOROSCOPY TIME: 27 seconds 6 Images saved to PACS LIMITATIONS: None. PROCEDURE: Hardware removal FINDINGS: Images obtained from fluoro document removal of a long dorsal plate. IMPRESSION: Hardware removal. Refer to operative note for further information. COMMENT: PQRS 6045F: Fluoroscopy time of the procedure is documented in the report. TECHNICAL DOCUMENTATION: JOB ID: [id number] [employer]- All Rights Reserved Reading location - IP/workstation name: [email or web address]
--- NOTE | 2018-04-08 13:38 | RADIOLOGY REPORT (SQ) ---
EXAM DESCRIPTION: NO CHG FLUORO; WRIST LEFT 3 VIEWS COMPLETED DATE/TIME: 04/08/2018 1:26 pm; 04/08/2018 1:27 pm REASON FOR STUDY: HARDWARE REMOVAL LEFT WRIST COMPARISON: 12/13/2017 FLUOROSCOPY TIME: 27 seconds 6 Images saved to PACS LIMITATIONS: None. PROCEDURE: Hardware removal FINDINGS: Images obtained from fluoro document removal of a long dorsal plate. IMPRESSION: Hardware removal. Refer to operative note for further information. COMMENT: PQRS 6045F: Fluoroscopy time of the procedure is documented in the report. TECHNICAL DOCUMENTATION: JOB ID: [id number] [employer], [employer]- All Rights Reserved Reading location - IP/workstation name: [email or web address]
[2018-04-08] MEDS ORDERED: GLYCOPYRROLATE 1 MG/5 ML SYRINGE ONE (14:14)
[2018-04-08] MEDS ORDERED: SUCCINYLCHOLINE CHLORIDE INJ 200 MG/10 ML VIAL ONE (14:14)
[2018-04-08 16:23] VITALS: BP 138/92
== END 2018-04-08 14:20 | disposition home or self-care (01) ==
LOC: OROUT 09:23
PROVIDERS: ATTEND Orthopaedic Surgery
DX: S52.532P Colles' fracture of left radius, subsequent encounter for closed fracture with malunion (principal); X58.XXXD Exposure to other specified factors, subsequent encounter; E78.5 Hyperlipidemia, unspecified; I10 Essential (primary) hypertension; K21.9 Gastro-esophageal reflux disease without esophagitis; E05.90 Thyrotoxicosis, unspecified without thyrotoxic crisis or storm; Z79.899 Other long term (current) drug therapy; Z88.5 Allergy status to narcotic agent; Z87.891 Personal history of nicotine dependence; Z91.040 Latex allergy status
CPT/HCPCS: 93005; 36415; 85027; 80048; 81001; 71046; 73110; 93010; 20680; 25295; J2795; J2250; J3490 ×4; J1100; J3010; J0330; J2405; J2704; J0690; J0131; 01830

== ENCOUNTER 2018-11-01 10:40 | Emergency (ER) | payer MEDICARE ==
--- NOTE | 2018-11-01 12:07 | ER Document Report ---
ED General - General Chief Complaint: Ear Pain Stated Complaint: EAR PAIN Time Seen by Provider: 11/01/18 10:49 Primary Care Provider: ARMEN HUTCHINS MD [Primary Care Provider] - Follow up as needed Notes: Patient is a 73-year-old female who presents the emergency department with a chief complaint of left jaw pain that radiates to her left ear. She states that she had taken a Prolia shot for her osteoporosis on September 25. One of the side effects from Prolia according to her discharge instructions from her primary care provider is osteopenia with jaw pain. She states that she is currently on tramadol and she took tramadol at 7:00 this morning. She states that every time she opens her jaw she has pain on the left side of her jaw. She has false teeth, and denies any previous problems. TRAVEL OUTSIDE OF THE [place] IN LAST 30 DAYS: No - Related Data Allergies/Adverse Reactions: baclofen Allergy (Verified 11/01/18 10:41) codeine [Codeine] Allergy (Verified 11/01/18 10:41) latex Allergy (Verified 11/01/18 10:41) midazolam [From Versed] Allergy (Verified 11/01/18 10:41) Past Medical History - Social History Smoking Status: Former Smoker Frequency of alcohol use: None Drug Abuse: None Family History: CAD Patient has suicidal ideation: No Patient has homicidal ideation: No - Past Medical History Cardiac Medical History: Reports: Hx Hypercholesterolemia, Hx Hypertension Denies: Hx Coronary Artery Disease, Hx Heart Attack Pulmonary Medical History: Denies: Hx Asthma, Hx Bronchitis, Hx COPD, Hx Pneumonia, Hx Tuberculosis Neurological Medical History: Denies: Hx Cerebrovascular Accident, Hx Seizures Renal/ Medical History: Denies: Hx Peritoneal Dialysis GI Medical History: Reports: Hx Gastroesophageal Reflux Disease - IBS Musculoskeletal Medical History: Reports Hx Arthritis - GENERALIZED Psychiatric Medical History: Reports: Hx Depression Infectious Medical History: Past Surgical History: Reports: Hx Abdominal Surgery - hernia, Hx Tubal Ligation. Denies: Hx Hysterectomy, Hx Pacemaker - Immunizations Hx Diphtheria, Pertussis, Tetanus Vaccination: Yes Review of Systems - Review of Systems Notes: REVIEW OF SYSTEMS: CONSTITUTIONAL : Denies recent illness. Denies recent unintentional weight loss. Denies fever, chills, or sweats. HEENT: See HPI CARDIOVASCULAR: Denies chest pain. RESPIRATORY: Denies shortness of breath, cough, congestion, difficulty breathing, or wheezing. GASTROINTESTINAL: Denies nausea, vomiting, and diarrhea. Denies abdominal pain. Denies constipation. GENITOURINARY: Denies difficulty urinating, burning, blood in urine, urgency or frequency. MUSCULOSKELETAL: Denies neck and back pain. Denies joint pain or swelling. SKIN: Denies rash, itchiness, or lesions HEMATOLOGIC : Denies easy bruising or bleeding. LYMPHATIC: Denies swollen, painful, enlarged glands. NEUROLOGICAL: Denies no numbness or tingling denies weakness. Denies headache. Denies altered mental status. Denies alteration in speech. PSYCHIATRIC: Denies stress, anxiety, alteration in sleep patterns, or depression. All other systems reviewed and negative. Physical Exam - Vital signs Vitals: Temp Pulse Resp BP Pulse Ox 98.0 F 65 16 114/62 95 11/01/18 10:47 11/01/18 10:47 11/01/18 10:47 11/01/18 10:47 11/01/18 10:47 - Notes Notes: PHYSICAL EXAMINATION: GENERAL: Appears well, healthy, well-nourished, no acute distress. HEAD: Normocephalic, atraumatic. EYES: PERRL, conjunctiva normal, all extraocular movements intact, sclera nonicteric ENT: Moist mucous membranes. Tympanic membranes noninjected. No otitis externa appreciated. NECK: Supple, no noticeable swelling, redness, rash. Normal range of motion. LUNGS: Equal breath sounds bilaterally and clear to auscultation. No wheezes rales or rhonchi. CARDIOVASCULAR: S1-S2, regular rate, regular rhythm. Radial pulses 2+, normal. ABDOMEN: Normoactive bowel sounds. Soft, nontender, no guarding, no rebound tenderness, and no masses palpated. EXTREMITIES: Normal strength and range of motion, no pitting or edema. No cyanosis. NEUROLOGICAL: Moves all extremities upon command. Strength 5/5 in all extremities. PSYCH: Normal mood, normal affect. SKIN: Warm, dry. No rash, lesions, ulcerations noted. Normal skin turgor. Course - Re-evaluation Re-evalutation: 11/01/18 12:08 Patient will be sent for a CT of the facial bones with and without IV contrast to rule out any osteomyelitis of her mandible. Differential diagnosis includes TMJ, osteomyelitis, and jaw dislocation. I have a very low suspicion for a jaw dislocation. 11/01/18 14:[address] of the facial bones is negative for any osteomyelitis or any acute process. She did have her right parotid gland removed, which explains why she does not have a right parotid gland. Patient is nontoxic in appearance. I do not suspect any life-threatening etiology at this time. I do not suspect mastoiditis. I do not suspect any acute otitis media, otitis externa, or any other etiology. This may be TMJ. She is to follow-up with her primary care provider. I have discussed CT results with the patient. She is in agreement with following up with her primary care. She will also start Tylenol 1000 mg every 6 hours as needed for her pain. Verbal discharge instructions were given to the patient. They verbalized understanding. They are stable for discharge. - Vital Signs Vital signs: Temp Pulse Resp BP Pulse Ox 98.0 F 65 16 114/62 95 11/01/18 10:47 11/01/18 10:47 11/01/18 10:47 11/01/18 10:47 11/01/18 10:47 - Laboratory Result Diagrams: 11/01/18 11:18 Laboratory results interpreted by me: 11/01/18 11:18 Sodium 131.3 L Discharge - Discharge Clinical Impression: Jaw pain Condition: Stable Disposition: HOME, SELF-CARE Additional Instructions: You were seen today in the emergency department for jaw pain. Your CT was normal. You can take Tylenol 1000 mg every 6 hours as needed for your pain. You can continue your tramadol that is prescribed by her primary care provider. Please follow-up with your primary care provider within the next 3 to 5 days. If you have worsening symptoms, develop dizziness, or have any symptoms that are worrisome to you, please return to the emergency department. Referrals: ARMEN HUTCHINS MD [Primary Care Provider] - Follow up in 3-5 days
[2018-11-01 12:08] LABS: ANION GAP 8 (5-19); BLOOD UREA NITROGEN 16 mg/dL (7-20); CALCIUM 10.1 mg/dL (8.4-10.2); CARBON DIOXIDE 22 mmol/L (22-30); CHLORIDE 101 mmol/L (98-107); GLUCOSE 88 mg/dL (75-110); POTASSIUM 4.6 mmol/L (3.6-5.0); SODIUM 131.3 mmol/L (137-145)
[2018-11-01] MEDS ORDERED: ACETAMINOPHEN 325 MG TABLET PO ONE (12:30)
--- NOTE | 2018-11-01 13:34 | RADIOLOGY REPORT (SQ) ---
EXAM DESCRIPTION: CT FACIAL AREA WITH COMPLETED DATE/TIME: 11/01/2018 1:07 pm REASON FOR STUDY: left jaw pain; eval osteomylitis COMPARISON: None. TECHNIQUE: Post contrast images through the facial bones and orbits windowed for bone and soft tissu e. Additional coronal and sagittal reconstructed images reviewed. All images stored on PACS. All CT scanners at this facility use dose modulation, iterative reconstruction, and/or weight based d osing when appropriate to reduce radiation dose to as low as reasonably achievable (ALARA). [facility]: Dose Right [facility]: CareDose [facility]: Dose Right [facility]: Teradose 4D [facility]: Cadee CONTRAST TYPE AND DOSE: contrast/concentration: Isovue 350.00 mg/ml; Total Contrast Delivered: 50.0 ml; Total Saline Delivered: 50.0 ml RENAL FUNCTION: Unknown RADIATION DOSE: CT Rad equipment meets quality standard of care and radiation dose reduction techniq ues were employed. CTDIvol: 30.4 mGy. DLP: 562 mGy-cm. . LIMITATIONS: None. FINDINGS: FACIAL BONES: No fracture or bone lesion. No deformity of the left mandible ORBITS: Intact. No fracture. Symmetric intact globes and retroorbital soft tissues. PARANASAL SINUSES: Clear. No significant mucosal thickening, mass or fluid. No nasal polyps. Maxilla ry sinus outlets are patent. SOFT TISSUES: Normal left parotid gland. No identified right parotid gland. Is it surgically absent . ? INFERIOR BRAIN: Limited view. No acute findings. OTHER: No other significant finding. IMPRESSION: No significant finding in the left mandible is questioned. No identified right parotid gland. Is is surgically absent? TECHNICAL DOCUMENTATION: JOB ID: [id number] Quality ID # [id number]: Final reports with documentation of one or more dose reduction techniques (e.g., Au tomated exposure control, adjustment of the mA and/or kV according to patient size, use of iterative reconstruction technique) 2010 [employer]- All Rights Reserved Reading location - IP/workstation name: [email or web address]
[2018-11-01 14:30] VITALS: BP 139/68
== END 2018-11-01 14:28 | disposition home or self-care (01) ==
LOC: ER 10:40
DX: R68.84 Jaw pain (principal); I10 Essential (primary) hypertension; M81.0 Age-related osteoporosis without current pathological fracture; Z79.891 Long term (current) use of opiate analgesic; Z97.2 Presence of dental prosthetic device (complete) (partial); Z88.8 Allergy status to other drugs, medicaments and biological substances; Z88.5 Allergy status to narcotic agent; Z91.040 Latex allergy status; Z87.891 Personal history of nicotine dependence
CPT/HCPCS: 99283; 36415; 80048; 70487; A9270

== ENCOUNTER 2019-03-13 09:57 | Emergency (ER) | payer MEDICARE ==
--- NOTE | 2019-03-13 10:15 | ER Document Report ---
ED Medical Screen (RME) - General Chief Complaint: Leg Pain Stated Complaint: LEG PAIN Time Seen by Provider: 03/13/19 10:04 Mode of Arrival: Wheelchair Information source: Patient Notes: Patient is a 73-year-old female presenting to the emergency department with multiple complaints of joint pain today. Patient reports she took a dose of Prolia 6 months ago for osteoporosis. She states ever since then she has had severe bone pain to the point where she is unable to properly function. Patient reports over the last 24 hours she has had severe pain in her right leg. She states she felt a very large crack last night and thinks she may have broken something. Patient reports she is now unable to walk on this. Patient is also complaining of severe pain to her left leg. Exam: Strong dorsalis pedis pulse bilaterally, swelling noted to right lower extremity. Exam limited due to position in triage in a wheelchair. I have greeted and performed a rapid initial assessment of this patient. A comprehensive ED assessment and evaluation of the patient, analysis of test results and completion of the medical decision making process will be conducted by additional ED providers. I have specifically instructed the patient or family members with the patient to immediately return to any nursing staff should anything change in the patient's condition or with their chief complaint. This medical record was dictated with voice recognizing software. There may be grammatical, syntax errors that are unintended. TRAVEL OUTSIDE OF THE [place] IN LAST 30 DAYS: No - Related Data Allergies/Adverse Reactions: baclofen Allergy (Verified 03/13/19 10:03) codeine [Codeine] Allergy (Verified 03/13/19 10:03) latex Allergy (Verified 03/13/19 10:03) midazolam [From Versed] Allergy (Verified 03/13/19 10:03) Past Medical History - Past Medical History Cardiac Medical History: Reports: Hx Hypercholesterolemia, Hx Hypertension Denies: Hx Coronary Artery Disease, Hx Heart Attack Pulmonary Medical History: Denies: Hx Asthma, Hx Bronchitis, Hx COPD, Hx Pneumonia, Hx Tuberculosis Neurological Medical History: Denies: Hx Cerebrovascular Accident, Hx Seizures Renal/ Medical History: Denies: Hx Peritoneal Dialysis GI Medical History: Reports: Hx Gastroesophageal Reflux Disease - IBS Musculoskeltal Medical History: Reports Hx Arthritis - GENERALIZED Psychiatric Medical History: Reports: Hx Depression Infectious Medical History: Past Surgical History: Reports: Hx Abdominal Surgery - hernia, Hx Tubal Ligation. Denies: Hx Hysterectomy, Hx Pacemaker - Immunizations Hx Diphtheria, Pertussis, Tetanus Vaccination: Yes History of Influenza Vaccine for 04/2017 - 09/2017 Season: Yes Influenza Administration Date for 04/2017 - 09/2017 Season: 04/14/17
[2019-03-13 11:13] LABS: ABSOLUTE BASOPHILS # (AUTO) 0.1 10^3/uL (0.0-0.2); ABSOLUTE EOSINOPHILS # (AUTO) 0.1 10^3/uL (0.0-0.6); ABSOLUTE MONOCYTES (AUTO) 1.4 10^3/uL (0.1-1.4); ABSOLUTE NEUT (AUTO) 9.3 10^3/uL (1.7-8.2); BASOPHILS % (AUTO) 0.5 % (0-2); EOSINOPHILS % (AUTO) 0.9 % (0-6); HEMATOCRIT 32.4 % (36.0-47.0); HEMOGLOBIN 10.7 g/dL (12.0-15.5); LYMPHOCYTES % (AUTO) 8.7 % (13-45); MEAN CORPUSCULAR HEMOGLOBIN 27.3 pg (27.0-33.4); MEAN CORPUSCULAR HGB CONC 33.1 g/dL (32.0-36.0); MEAN CORPUSCULAR VOLUME 83 fl (80-97); MONOCYTES % (AUTO) 11.6 % (3-13); PLATELET COUNT 680 10^3/uL (150-450); RED BLOOD COUNT 3.93 10^6/uL (3.72-5.28); RED CELL DISTRIBUTION WIDTH 15.7 % (11.5-14.0); SEGMENTED NEUTROPHILS % (AUTO) 78.3 % (42-78); TOTAL CELLS COUNTED % (AUTO) 100 %; WHITE BLOOD COUNT 11.9 10^3/uL (4.0-10.5)
[2019-03-13 11:33] LABS: ALBUMIN 3.4 g/dL (3.5-5.0); ALKALINE PHOSPHATASE 174 U/L (38-126); ANION GAP 12 (5-19); ASPARTATE AMINO TRANSFERASE 24 U/L (14-36); BILIRUBIN,DIRECT 0.2 mg/dL (0.0-0.4); BILIRUBIN,TOTAL 0.3 mg/dL (0.2-1.3); BLOOD UREA NITROGEN 17 mg/dL (7-20); CALCIUM 10.2 mg/dL (8.4-10.2); CARBON DIOXIDE 23 mmol/L (22-30); CHLORIDE 94 mmol/L (98-107); GLUCOSE 102 mg/dL (75-110); TOTAL PROTEIN 6.5 g/dL (6.3-8.2)
--- NOTE | 2019-03-13 11:44 | ER Document Report ---
ED General - General Chief Complaint: Leg Pain Stated Complaint: LEG PAIN Time Seen by Provider: 03/13/19 10:04 Mode of Arrival: Wheelchair Information source: Patient Notes: HPI: 73-year-old female that presents today stating increased pain to the right knee and right hip. She states she has had intermittent pain to multiple joints for many months. She did receive an osteoporosis injection of Prolia around 6 months ago. No recent trauma. No swelling of the legs. No pain in the calves. No fevers or vomiting. No chest pain or shortness of breath. Patient states she has pain in her joints at multiple locations but mostly to the right knee. States she has seen her primary care physician about this and he placed on tramadol. ROS: See HPI All other review of systems reviewed and otherwise negative Reviewed vital signs and nursing note as charted by RN. PHYSICAL EXAM: CONSTITUTIONAL: Alert and oriented and responds appropriately to questions. Well-appearing; well-nourished HEAD: Normocephalic; atraumatic NECK: Supple without meningismus; non-tender; no cervical lymphadenopathy, no masses CARD: Regular rate and rhythm; no murmurs; symmetric distal pulses RESP: Normal chest excursion without splinting or tachypnea; breath sounds clear and equal bilaterally ABD/GI: Normal bowel sounds; non-distended; soft, non-tender; no palpable organomegaly or masses BACK: The back appears normal and is non-tender to palpation of the posterior midline spine EXT: Patient does have range of motion greater than 90 degrees to all joints including the right hip and right knee. No obvious swelling, erythema, or induration. Absolutely no calf pain or tenderness. Neurovascularly intact distally with strong pulses to bilateral feet SKIN: No acute lesions noted NEURO: CN 2-12 intact; 5/5 bilateral upper and lower extremity strength with sensation intact to light touch PSYCH: The patient's mood and manner are appropriate. Grooming and personal hygiene are appropriate. TRAVEL OUTSIDE OF THE [place] IN LAST 30 DAYS: No - Related Data Allergies/Adverse Reactions: baclofen Allergy (Verified 03/13/19 10:03) codeine [Codeine] Allergy (Verified 03/13/19 10:03) latex Allergy (Verified 03/13/19 10:03) midazolam [From Versed] Allergy (Verified 03/13/19 10:03) Past Medical History - General Information source: Patient - Social History Smoking Status: Former Smoker Family History: CAD Patient has suicidal ideation: No Patient has homicidal ideation: No - Past Medical History Cardiac Medical History: Reports: Hx Hypercholesterolemia, Hx Hypertension Denies: Hx Coronary Artery Disease, Hx Heart Attack Pulmonary Medical History: Denies: Hx Asthma, Hx Bronchitis, Hx COPD, Hx Pneumonia, Hx Tuberculosis Neurological Medical History: Denies: Hx Cerebrovascular Accident, Hx Seizures Renal/ Medical History: Denies: Hx Peritoneal Dialysis GI Medical History: Reports: Hx Gastroesophageal Reflux Disease - IBS Musculoskeletal Medical History: Reports Hx Arthritis - GENERALIZED Psychiatric Medical History: Reports: Hx Depression Infectious Medical History: Past Surgical History: Reports: Hx Abdominal Surgery - hernia, Hx Tubal Ligation. Denies: Hx Hysterectomy, Hx Pacemaker - Immunizations Hx Diphtheria, Pertussis, Tetanus Vaccination: Yes Course - Re-evaluation Re-evalutation: Given the history and physical examination, we will perform basic labs, calcium level, hemoglobin level, and x-rays of the right knee and right hip. I would like to check the possibility of an elevated calcium, low hemoglobin, or other signs of systemic disease that can cause multiple joints to be painful such as multiple myeloma. No signs of infection. Absolutely no calf pain or tenderness. No history of DVT/PE. 03/13/19 11:44 Labs initially as recorded. 03/13/19 12:57 Labs as recorded. Patient's sodium and chloride are slightly low. Calcium and hemoglobin as recorded. X-ray of the hip shows no acute process. X-ray of the knee as recorded. Patient has no tenderness to the patella. It is midline on exam. Given the above history and physical we will discharge the patient home with s trict return precautions. Patient understands to follow-up regarding a sodium recheck. Patient is also been given a knee immobilizer for comfort. She has been given instructions for frequent removal of this knee immobilizer and range of motion exercises. Patient does have an orthopedic surgeon who has performed previous procedures. She has his phone number and contact information. Strict return precautions have been provided. - Laboratory Result Diagrams: 03/13/19 10:55 03/13/19 10:55 Laboratory results interpreted by me: 03/13/19 03/13/19 10:55 10:55 WBC 11.9 H Hgb 10.7 L Hct 32.4 L RDW 15.7 H Plt Count 680 H Lymph % (Auto) 8.7 L Absolute Neuts (auto) 9.3 H Seg Neutrophils % 78.3 H Sodium 128.5 L Chloride 94 L Alkaline Phosphatase 174 H Albumin 3.4 L Discharge - Discharge Clinical Impression: Right knee pain Qualifiers: Chronicity: acute Qualified Code(s): M25.561 - Pain in right knee Condition: Good Disposition: HOME, SELF-CARE Additional Instructions: Come back immediately for any increased pain, swelling, redness, any fevers, vomiting, chest pain or shortness of breath, or any other acute problems. Please make sure that you frequently take off the knee immobilizer as we have discussed with range of motion exercises. Please follow-up with your orthopedic surgeon for reassessment and reevaluation of your knee. Please also follow-up with your primary doctor given the sodium level today 128.
--- NOTE | 2019-03-13 12:13 | RADIOLOGY REPORT (SQ) ---
EXAM DESCRIPTION: HIP RIGHT AP/LATERAL COMPLETED DATE/TIME: 03/13/2019 12:05 pm REASON FOR STUDY: 13; pain COMPARISON: None. NUMBER OF VIEWS: Two views. TECHNIQUE: AP and frog-leg view of the right hip. LIMITATIONS: None. FINDINGS: MINERALIZATION: Normal. RIGHT HIP: No fracture or dislocation. No worrisome bone lesions. No contour deformity. No joint sp jonny narrowing. OPPOSITE HIP: No fracture or dislocation. No worrisome bone lesions. SOFT TISSUES: No findings. OTHER: No other significant finding. IMPRESSION: NEGATIVE STUDY OF THE RIGHT HIP. NO EXPLANATION FOR PAIN. TECHNICAL DOCUMENTATION: JOB ID: [id number] [employer]- All Rights Reserved Reading location - IP/workstation name: [email or web address]
--- NOTE | 2019-03-13 12:15 | RADIOLOGY REPORT (SQ) ---
EXAM DESCRIPTION: KNEE RIGHT 4 VIEWS COMPLETED DATE/TIME: 03/13/2019 12:05 pm REASON FOR STUDY: 13, pain COMPARISON: None. NUMBER OF VIEWS: Four views. TECHNIQUE: AP, lateral, and both oblique radiographic images acquired of the right knee. LIMITATIONS: None. FINDINGS: MINERALIZATION: Normal. BONES: No acute fracture or dislocation. No worrisome bone lesions. The patella appears laterally d isplaced on the AP projection. Clinical correlation is needed. JOINT: There is a small joint effusion. SOFT TISSUES: No soft tissue swelling. No radio-opaque foreign body. OTHER: No other significant finding. IMPRESSION: Small joint effusion. Patella appears slightly latter displaced on the frontal projecti on. TECHNICAL DOCUMENTATION: JOB ID: [id number] [employer]- All Rights Reserved Reading location - IP/workstation name: [email or web address]
[2019-03-13 12:37] LABS: APPEARANCE,URINE CLEAR; BILIRUBIN,URINE NEGATIVE (NEGATIVE); COLOR,URINE YELLOW; GLUCOSE, URINE NEGATIVE (NEGATIVE); KETONES,URINE NEGATIVE (NEGATIVE); LEUKOCYTE ESTERASE,URINE NEGATIVE (NEGATIVE); NITRITE,URINE NEGATIVE (NEGATIVE); PROTEIN,URINE NEGATIVE (NEGATIVE); URINE SPECIFIC GRAVITY 1.006; UROBILINOGEN,URINE NEGATIVE mg/dL (<2.0)
[2019-03-13 13:48] VITALS: BP 136/83
== END 2019-03-13 14:04 | disposition home or self-care (01) ==
LOC: ER 09:57
DX: M25.561 Pain in right knee (principal); M79.604 Pain in right leg; E78.00 Pure hypercholesterolemia, unspecified; I10 Essential (primary) hypertension; Z98.51 Tubal ligation status; Z91.040 Latex allergy status
CPT/HCPCS: 99283; 36415; 85025; 80053; 81001; 73502; 73564; L1830